=== PATIENT | male | born 1970 | race Caucasian/White ===

== ENCOUNTER 2019-12-23 20:57 | Emergency (ER) | payer OTHER, SELFPAY ==
[2019-12-23 21:06] VITALS: BP 130/91; PULSE 101; RESP 16; TEMP 36.7; O2SAT 97
[2019-12-23] MEDS: Famotidine 20 MG TAB 40 MG PO (21:22)
[2019-12-23] MEDS: predniSONE 20 MG TAB 60 MG PO (21:22)
[2019-12-23 21:50] VITALS: PULSE 89; O2SAT 99
--- NOTE | 2019-12-23 22:28 | ED.GENADUL_ITS ---
Discharge Plan Disposition Patient Disposition: HOME Condition: Stable Discharge Details Chief Complaint: Allergic Clinical Impression: Allergic reaction to bee sting Primary Care Provider: Susan,Local ED Provider: Elan Haile Home Meds and New Rx's Prescriptions: New prednisone 20 mg tablet 60 mg PO DAILY 5 Days Qty: 15 RF: 0 epinephrine [EpiPen 2-Marcio] 0.3 mg/0.3 mL auto-injector 0.3 mg IM ONCE Qty: 1 RF: 0 Discharge Instructions Instructions: Insect Bite or Sting (ED), General Allergic Reaction (ED) Additional Instructions: At this time you have responded nicely to the medications given to you in the ER and the Benadryl he took prior to arrival. Continue [id number] Benadryl and Pepcid as directed for the next 5 days. I will provide a prescription for prednisone that I want to take as directed. We discussed the use of an EpiPen in length, I will provide you a prescription for this as you to work in the [employer], often gets done, and are away from medical attention. I have placed you on the primary care list, they should be contacting you to help expedite outpatient care. Please watch for new or worsening symptoms and return to the ER for any concerns Discharge Data Discharge Date/Time-TO BE ENTERED AT DEPARTURE: 12/23/19 22:40 Medical Decision Making 49-year-old gentleman who presents with hives status post a hornet sting. Did already take Benadryl prior to arrival. No evidence of airway compromise angioedema. Patient makes it very clear that he does not want an IV. I explained to him that given the reaction typically we would give IV steroids, IV Pepcid, IV fluids and observation. He is willing to take oral fluid, take oral Pepcid and oral steroids, observed in the ER for a lengthy period of time. Patient given oral prednisone and Pepcid. Tolerated oral fluids without difficulty. Patient observed in the ER for over an hour and a half at which time he was requesting for discharge. The hives have decreased greatly decreased. I would estimate that they are approximately 80% better but not resolved completely. Patient does request a prescription for EpiPen. We had a lengthy discussion on the proper use of an EpiPen, the potential for rebound, and the importance of emergent care if he does require using his EpiPen. Patient has no additional questions or concerns and is comfortable discharge. HPI General Mode of arrival: ambulatory . Date/Time Provider Initiated Documentation: 12/23/19 21:12 . Limitations to Documentation: no limitations . Information obtained by: patient . HPI Narrative: This is a 49-year-old gentleman without significant past medical history. He reports that approximately 2 hours ago he was stung by a hornet on the left arm, approximately 45 minutes after he developed an itchy rash across his entire body sparing his head. He reports that he took 5 Benadryl and then came to the ER. He has never had a reaction like this to a sting before. He denies any pain, lightheadedness, chest pain, shortness of breath, wheezing, mouth or tongue swelling. He has no additional medical concerns at this time. He makes it very clear that he does not want to have any IV access at this time Related Data Home Medications Medication Instructions Recorded Confirmed epinephrine [EpiPen 2-Marcio] 0.3 mg IM ONCE #1 each 12/23/19 prednisone 60 mg PO DAILY 5 Days #15 tab 12/23/19 Previous Rx's Medication Instructions Recorded epinephrine [EpiPen 2-Marcio] 0.3 mg IM ONCE #1 each 12/23/19 prednisone 60 mg PO DAILY 5 Days #15 tab 12/23/19 General Stated Complaint: Allergic STACEY: 2 Review of Systems Constitutional Constitutional: Denies fever(s) and Denies weakness Eyes Eyes: Denies itchy eyes ENT Ears, Nose, Mouth, and Throat: Denies lip swelling, Denies sore throat, Denies throat swelling and Denies tongue swelling Cardiovascular Cardiovascular: Denies chest pain and Denies dyspnea Respiratory Respiratory: Denies cough, Denies dyspnea and Denies wheezing Gastrointestinal Gastrointestinal: Denies nausea Musculoskeletal Musculoskeletal: Denies numbness and Denies tingling Integumentary/Breasts Skin/Breast: Reports rash Neurologic Neurologic: Denies numbness, Denies tingling and Denies weakness Allergic/Immunologic Allergic/Immunologic: Reports urticaria, Denies itchy eyes, Denies lip swelling, Denies throat swelling, Denies tongue swelling and Denies wheezing [facility] Social History Smoking/Tobacco Use Status: Current every day Tobacco Type: e-cigarettes Drug use: Never Substance use type: does not use Do you feel safe at home: Yes Exam Const General: cooperative, healthy appearing, comfortable and no acute distress Orientation: alert, awake and oriented x3 HENMT Head: normal to inspection, normocephalic and atraumatic Face and sinus: normal facial exam Mouth: moist mucous membranes Throat: posterior oropharynx normal Eyes General: appearance normal, both eyes and all related structures Alignment and Position: alignment normal Periorbital: periorbital findings normal Eyelids: eyelids normal Conjunctivae: conjunctivae normal Sclera: sclerae normal Cornea: corneas normal Pupils: PERRL EOM: EOM intact bilaterally Direct ophthalmoscopy: normal light reflex Neck Neck: normal visual inspection, full ROM, trachea midline and supple Resp Effort & Inspection: normal respiratory effort and able to speak in complete sentences Auscultation: clear to auscultation bilaterally Cardio Rate: regular rate Rhythm: regular rhythm GI Palpation: soft and nontender Back/Spine/Pelvis Back: No back tenderness Skin Lesions: no lesions Other: Patchy, papular, erythematous, blanchable rash across the entire body, sparing the face. Highest percentage on the bilateral upper extremities, then trunk, then legs. No petechiae. Nontender. Consistent with hives Neuro General: patient alert, patient awake, patient oriented x3, moves all extremities and no focal motor deficits Speech: speech normal Gait: normal gait Motor: muscle tone normal throughout Sensory Exam: no sensory deficits noted Extrem General: normal to inspection, full ROM and capillary refill normal Psych Appearance: grossly normal Mental Status: mental status grossly normal Course Vital Signs Vital signs: Vital Signs Temperature 36.7 C 12/23/19 21:06 Pulse 101 H 12/23/19 21:06 Respiratory Rate 16 12/23/19 21:06 Blood Pressure 130/91 H 12/23/19 21:06 Pulse Oximetry 97 12/23/19 21:06 Temperature 36.7 C 12/23/19 21:06 Temperature Source Oral 12/23/19 21:06 Pulse 89 12/23/19 21:50 Respiratory Rate 16 12/23/19 21:06 Respiratory Effort 12/23/19 21:09 Respiratory Pattern Normal 12/23/19 21:09 Blood Pressure 130/91 H 12/23/19 21:06 Blood Pressure Position Sitting 12/23/19 21:06 Pulse Oximetry 99 12/23/19 21:50 Oxygen Delivery Method Room Air 12/23/19 21:06 Oxygen Flow Rate 0 12/23/19 21:06
--- NOTE | 2019-12-25 12:46 | PDOC.ERCMPRO ---
- If Service Date Differs Date of service: 12/25/19 Time of Service: 12:46 Care Management Progress Note At the request of ED provider, CM coordinates referral to Dr. Echevarria, [facility], of [facility], to assist patient in establishing care with a PCP. Vincenzo is seen in the ED on 12/23/2019 for an allergic reaction to a bee sting.
== END 2019-12-23 22:40 | disposition home or self-care (01) ==
PROVIDERS: Emergency Provider Physician Assistant
DX: T63.451A Toxic effect of venom of hornets, accidental (unintentional), initial encounter (principal); L50.0 Allergic urticaria
CPT/HCPCS: 99283; J7512

== ENCOUNTER 2020-09-05 15:15 | Outpatient (REF) | payer OTHER, SELFPAY ==
[2020-09-05 15:48] LABS: HCT 48.1 % (40.0-50.0); HGB 16.4 g/dL (13.5-17.5); MCH 29.6 pg (27.0-33.0); MCHC 34.1 % (32.0-36.0); MCV 86.8 fL (80-95); Platelet Count 409 10^3/uL (130-400); RBC 5.54 10^6/uL (4.36-5.78); RDW 12.8 % (11.8-14.1); RDW-SD 40.7 fL
[2020-09-05 16:00] LABS: ALT 33 U/L (16-63); AST 16 U/L (15-37); Alkaline Phosphatase 79 U/L (46-116); Anion Gap 11.8 mmol/L (3-11); BUN 11 mg/dL (7-18); Bilirubin, Total 0.4 mg/dL (0.2-1.0); CO2 26.2 mmol/L (21.0-32.0); CREATININE 0.8 mg/dL (0.70-1.30); Calcium 9.2 mg/dL (8.5-10.1); Calculated LDL 154 mg/dL (<100); Chloride 104 mmol/L (98-107); Cholesterol 218 mg/dL (<200); Glucose 95 mg/dL (74-106); HDL Cholesterol 48 mg/dL (40-60); Sodium 142 mmol/L (136-145); Total Protein 7.6 g/dL (6.4-8.2); Triglyceride 80 mg/dL (<150)
[2020-09-05 16:03] LABS: Hemoglobin A1C 5.6 % (<5.7)
[2020-09-05 16:25] LABS: Absolute Basophil Count 0.08 10^3/uL (0.0-0.2); Absolute Eosinophil Count 0.26 10^3/uL (0.0-0.7); Absolute Lymphocyte Count 2.93 10^3/uL (1.2-3.4); Absolute Monocyte Count 1.11 10^3/uL (0.1-0.8); Absolute Neutrophil Count 10.05 10^3/uL (1.2-6.7); Basophils % 0.6; Eosinophils % 1.8; Immature Grans % 0.7; Lymphocytes % 20.2; Monocytes % 7.6; Neutrophils % 69.1
[2020-09-05 16:32] LABS: COMMENT (LAB VIEW ONLY) 66.61 mg/dL; Microalb ug/mg Crea 11.3 ug/mg Cr
== END 2020-09-05 15:16 | disposition home or self-care (01) ==
LOC: NCHCN 15:15
PROVIDERS: Visit Provider Nurse Practitioner Family
DX: R73.9 Hyperglycemia, unspecified (principal); R10.9 Unspecified abdominal pain
CPT/HCPCS: 80053; 80061; 85027; 82043; 82570; 83036; 85007

== ENCOUNTER 2020-09-08 14:50 | Inpatient (IN) | payer OTHER, SELFPAY ==
[2020-09-08] VITALS (12 sets, daily range): BP systolic 131–148; BP diastolic 81–96; PULSE 92–125; RESP 18; TEMP 36.7–36.9; O2SAT 93–97
--- NOTE | 2020-09-08 15:15 | DI.CT_ITS ---
EXAM: CT ABDOMEN PELVIS W CLINICAL HISTORY: diffuse pain x 8 months. TECHNIQUE: Imaging Protocol: Axial computed tomography images with coronal and sagittal reformatted images were created and reviewed CONTRAST MATERIAL: Intravenous: Omnipaque 100cc Oral: None COMPARISON: No exams were available for comparison FINDINGS: VISUALIZED LUNG BASES: Mild benign-appearing subpleural increased markings in the right lung base pos terior basal segment.. There are no pleural effusions. ABDOMEN: There is no ascites. LIVER: There are no obvious focal hepatic lesions evident . GALLBLADDER/BILIARY: No obvious gallbladder pathology. CBD is not dilated. PANCREAS: No evidence of pancreatic mass nor dilatation of the pancreatic duct. SPLEEN: Spleen is not enlarged. No obvious intrasplenic lesions. Splenic and portal veins are paten t. ADRENALS: There are no significant adrenal masses. KIDNEYS:No cysts evident. No solid renal masses. No calculi nor hydronephrosis.. ABDOMINAL AORTA: Abdominal aorta is not enlarged. LYMPH NODES:There is no retroperitineal nor paraaortic adenopathy. ABDOMINAL WALL/GI: No evidence of significant anterior abdominal wall hernia. No bowel obstruction. PELVIS: GI: No evidence of appendicitis.There is significant circumferential edema of the sigmoid over a hao th of approximately 11 cm. There is surrounding soft tissue streaking and there is a area of phlegmo nous-early abscess development measuring 4.5 x 4.2 x 3.3 cm just above the affected sigmoid. There i s no abnormal air in the bladder to suggest fistulous communication. No air-gas in the portal venous system. LYMPH NODES: There is no intrapelvic nor inguinal adenopathy. REPRODUCTIVE: Prostate not enlarged. URINARY BLADDER: No calculi nor obvious masses evident OSSEOUS: No significant osseous lesions. IMPRESSION: 1. Findings are consistent with severe acute sigmoid diverticulitis. There is developing perisigmoid abscess measuring 4.5 x 4.2 x 4.3 cm. No air in the portal venous system. No abscess in the liver. There is no air within the urinary bladder to suggest fistulous communication. RADIATION DOSE DELIVERED: 1,123.45mGy.cm Total DLP DATA REPOSITORY: All CT scans at this facility are submitted to the National Radiology Data Registry (NRDR) Dose Index Registry (DIR) with the [employer] (ACR). RADIATION OPTIMIZATION: All CT scans at this facility use at least one of these dose optimization te chniques: automated exposure control; mA and/or kV adjustment per patient size (includes targeted exa ms where dose is matched to clinical indication); or iterative reconstruction.
--- NOTE | 2020-09-08 15:19 | W.ED.GENAD ---
Discharge Plan Disposition Patient Disposition: [facility] INPATIENT Condition: Stable Discharge Details Clinical Impression: Diverticulitis, Abdominal abscess Admit Date/Time: 09/08/20 16:51 Admit Provider: Louise Leon Attending Provider: Louise Leon Primary Care Provider: Susan,[facility] ED Provider: Shantal Phelps Discharge Data Discharge Date/Time-TO BE ENTERED AT DEPARTURE: 09/08/20 17:49 Medical Decision Making <AMY Nunez - Last Filed: 09/08/20 17:04> Patient is a pleasant 49-year-old male presenting today with chief complaint of diffuse abdominal pain. Reports that he is been having crampy abdominal pain for the past 6 to 8 months. He reports that when the pain comes on it typically last approximately 5 hours. No known exacerbating factors. No nothing seems to improve the discomfort. He did not find is worse with movement or eating. States over the past 2 days he has had a diminished appetite. No weight loss over the past several months. No previous abdominal surgeries. Denies any nausea or vomiting. States that he has been fairly constipated the past couple of days only has small bowel movement this morning which is atypical for him. Patient was seen by urgent care on at which time a CAT scan was ordered as an outpatient and patient has not completed this as of yet. Patient comes in today as a pain continues to worsen. On exam, patient appears anxious. He appears nontoxic. He is tachycardic with heart rate of 105. Patient is afebrile. He indicates fairly diffuse abdominal discomfort with no focal area of pain. No pain is elicited with palpation. No peritoneal findings. Lungs are clear. Normal cardiac exam. Patient denies any chest pain or shortness of breath. No alcohol. Differential the time is fairly broad. Patient does not examine like a surgical abdomen. Given the length of time, I am concerned about GERD or food driven source. Patient describes eating gluten-free when he is with his but eating canned ravioli for lunch. Unclear if this could be setting off his discomfort. Also considered cholecystitis or other gallbladder dysfunction. Diverticulitis is also on the differential. Did not have focal right lower quadrant pain patient may be suffering from an appendicitis. Plan to obtain CT that was previously ordered as well as repeat labs. Discussed this plan with the patient in agreement. Labs significant for white count of 17. This is a from 14 3 days ago. CMP without significant abnormality. At the end of my shift, care transition to Inocencia Medina NP. Patient is just coming back from CT scan. Awaiting results. <Shantal Phelps - Last Filed: 09/08/20 22:13> Care assumed from provider (AMY Nunez) Discussed patient details and case and pending workup and disposition. Patient is hemodynamically stable, alert and oriented. Please see her of original HPI and physical exam. 49-year-old male with abdominal cramping for approximately 6 to 8-month which has gradually gotten worse over the last few months, denies any nausea vomiting diarrhea. The time of signout pending CT results. He was recently seen by his PCP on September 05. CT results are as follows: FINDINGS: Lungs: subsegmental atelectasis versus scarring at the right pulmonary base. Liver: Normal. No mass. Gallbladder and bile ducts: Normal. No calcified stones. No ductal dilation. Pancreas: Normal. No ductal dilation. Spleen: Normal. No splenomegaly. Adrenal glands: Normal. No mass. Kidneys and ureters: Normal. No hydronephrosis. Stomach and bowel: Acute sigmoid diverticulitis. Adjacent abscess measures 4.2 x 3.8 cm. Appendix: No evidence of appendicitis. Intraperitoneal space: Unremarkable. No free air. No significant fluid collection. Vasculature: Atherosclerosis. Lymph nodes: Unremarkable. No enlarged lymph nodes. Urinary bladder: Unremarkable as visualized. Reproductive: Unremarkable as visualized. Bones/joints: Degenerative disc disease at L5-S1. Soft tissues: Unremarkable. IMPRESSION: Acute sigmoid diverticulitis. Adjacent abscess measures 4.2 x 3.8 cm. 1628: Surgery paged. 1631: Spoke with Dr. Leon who will personally view CT abd and call me back. Discussed CT and lab results with patient who verbalizes understanding. Lactate and CRP ordered. Patient heart rate is 112, IV lactated Ringer's is infusing without difficulty. Blood pressure is 139/82. 1640: Spoke with Dr. Leon who recommends admission at this time. Discussed plan of care with patient who verbalizes understanding and is in agreement with plan. Dr. Leon recommends Zosyn IV piggyback, blood cultures x2, orders in place. 1730: Dr. Leon here in the department for patient evaluation. Patient remained hemodynamically stable throughout stay. This text was generated using [employer] system, please disregard any oddities of phrase or misspellings. HPI <AMY Nunez - Last Filed: 09/08/20 17:04> General Mode of arrival: ambulatory. Date/Time Provider Initiated Documentation: 09/08/20 14:51. Limitations to Documentation: no limitations. Information obtained by: patient and RN notes reviewed. History of Present Illness 49 year old M presents to the emergency department with the chief complaint of diffuse abdominal pain, described as severe, with intensity rated at 8. Quality is described as other (crampy), and is localized to the abdomen. Patient reports no radiation. Patient started experiencing this month(s) (6-8) and it has been intermittent (last 5 hours a time). No relieving factors improve symptom(s), No exacerbating factors reported . Patient notes loss of appetite (last 2 days); denies chest pain, diaphoresis, fever/chills, nausea/vomiting, rash, shortness of breath and weakness. Patient did receive the following treatments prior to arrival, none Related Data Home Medications Medication Instructions Recorded Confirmed epinephrine [EpiPen 2-Marcio] 0.3 mg IM ONCE #1 each 12/23/19 09/08/20 Previous Rx's Medication Instructions Recorded epinephrine [EpiPen 2-Marcio] 0.3 mg IM ONCE #1 each 12/23/19 Allergies Allergy/AdvReac Type Severity Reaction Status Date / Time bee venom protein (honey bee) Allergy Unverified 09/08/20 15:02 General Stated Complaint: Abd Prob STACEY: 3 Review of Systems <AMY Nunez - Last Filed: 09/08/20 17:04> Constitutional Constitutional: Reports as per HPI, Denies chills, Denies fatigue, Denies fever(s) and Denies headache(s) ENT Ears, Nose, Mouth, and Throat: Denies headache(s) Cardiovascular Cardiovascular: Reports as per HPI, Denies chest pain and Denies dyspnea Respiratory Respiratory: Reports as per HPI, Denies cough and Denies dyspnea Gastrointestinal Gastrointestinal: Reports as per HPI Genitourinary Genitourinary: Denies system reviewed and no additional complaints, except as documented (patient denies any change in urinary habits) Musculoskeletal Musculoskeletal: Reports as per HPI and Denies back pain Integumentary/Breasts Skin/Breast: Reports as per HPI and Denies rash Neurologic Neurologic: Reports as per HPI and Denies headache(s) Endocrine Endocrine: Denies fatigue PFSH <AMY Nunez - Last Filed: 09/08/20 17:04> Social History Smoking/Tobacco Use Status: Current every day Tobacco Type: cigarettes Smoking risk assessment performed?: Yes Alcohol Intake: current Alcohol Intake frequency: holidays/special occasions only Drug use: Never Substance use type: does not use Do you feel safe at home: Yes Do you feel safe in your relationship?: Yes Exam <AMY Nunez Last Filed: 09/08/20 17:04> Const General: cooperative, healthy appearing, comfortable, no acute distress and well developed Nutritional Appearance: average body habitus and well nourished Orientation: alert and awake HENMT Head: normal to inspection Mouth: moist mucous membranes Resp Effort & Inspection: normal respiratory effort, able to speak in complete sentences and no respiratory distress Auscultation: clear to auscultation bilaterally, no rales, no rhonchi and no wheezes Cardio Rate: regular rate Rhythm: regular rhythm Heart Sounds: S1 normal and S2 normal GI Inspection: normal to inspection, no edema, non-distended, no visible herniation and no visible pulsation Palpation: soft, no hepatosplenomegaly, not firm, no guarding, no hernias, no pulsatile masses, not rigid and nontender (indicates entire abdomen as area of pain, none with palpation) Back/Spine/Pelvis Back: no CVA tenderness Skin General skin exam: no rashes or lesions noted Trauma: no lacerations or abrasions Neuro General: patient alert and patient awake Cognition: normal cognition Speech: speech normal Gait: normal gait Psych Appearance: grossly normal and well kempt Mental Status: mental status grossly normal Speech and Movement: speech and movement normal Course <AMY Nunez - Last Filed: 09/08/20 17:04> Vital Signs Vital signs: Vital Signs Temperature 36.7 C 09/08/20 14:55 Pulse 125 H 09/08/20 14:55 Blood Pressure 148/92 H 09/08/20 14:55 Pulse Oximetry 97 09/08/20 14:55 Temperature 36.7 C 09/08/20 14:55 Temperature Source Temporal Artery Scan 09/08/20 14:55 Pulse 125 H 09/08/20 14:55 Respiratory Effort Non-Labored 09/08/20 15:02 Blood Pressure 148/92 H 09/08/20 14:55 Blood Pressure Position Sitting 09/08/20 14:55 Pulse Oximetry 97 09/08/20 14:55 Oxygen Delivery Method Room Air 09/08/20 14:55 Oxygen Flow Rate 0 09/08/20 14:55 Pain Level 8 09/08/20 14:55 Sign Out <AMY Nunez - Last Filed: 09/08/20 17:04> Sign Out Data: Sign Out Comment: Care transition to Inocencia Medina NP with imaging pending. Patient here with 6 to 8 months of abdominal discomfort and cramping. No weight loss. Labs pertinent for white count of 17. No peritoneal findings on exam. CT scan pending. Last updated by Dionna Holt PA at 09/08/20 16:09
[2020-09-08 15:30] LABS: Abs Immature Grans 0.07 10^3/uL (0.0-0.06); Absolute Monocyte Count 1.73 10^3/uL (0.1-0.8); Absolute Neutrophil Count 12.36 10^3/uL (1.2-6.7); Basophils % 0.6; Eosinophils % 0.9; HCT 49.9 % (40.0-50.0); HGB 16.7 g/dL (13.5-17.5); Immature Grans % 0.4; Lymphocytes % 15.8; MCH 28.7 pg (27.0-33.0); MCHC 33.5 % (32.0-36.0); MCV 85.9 fL (80-95); MPV 9.9 fL (8.0-11.0); Monocytes % 10.1; Neutrophils % 72.2; Nucleated RBC 0 %; Platelet Count 440 10^3/uL (130-400); RBC 5.81 10^6/uL (4.36-5.78); RDW 12.5 % (11.8-14.1); RDW-SD 38.9 fL; WBC 17.12 10^3/uL (4.4-10.8)
[2020-09-08] MEDS: Lactated Ringers 1,000 ML 1000 ML IV (15:31)
[2020-09-08 15:32] LABS: Absolute Eosinophil Count 0.15 10^3/uL (0.0-0.7)
[2020-09-08 15:45] LABS: ALT 27 U/L (16-63); AST 12 U/L (15-37); Albumin 3.7 g/dL (3.4-5.0); Alkaline Phosphatase 78 U/L (46-116); Anion Gap 11.4 mmol/L (3-11); BUN 12 mg/dL (7-18); Bilirubin, Total 0.4 mg/dL (0.2-1.0); CO2 27.6 mmol/L (21.0-32.0); CREATININE 0.9 mg/dL (0.70-1.30); Calcium 9.2 mg/dL (8.5-10.1); Chloride 101 mmol/L (98-107); Glucose 112 mg/dL (74-106); Lipase 61 U/L (73-393); Magnesium 2.2 mg/dL (1.8-2.4); Potassium 3.7 mmol/L (3.5-5.1); Sodium 140 mmol/L (136-145); Total Protein 8.3 g/dL (6.4-8.2)
[2020-09-08] MEDS: Normal Saline - Diluent 50 ML VIAL IV (15:51)
[2020-09-08] MEDS: Omnipaque 350 MG/ML 100 ML BTL IJ (15:51)
[2020-09-08 16:15] LABS: Diff Comment Agrees w/ Instrument; RBC Morphology Normal
[2020-09-08 16:24] LABS: Bilirubin Negative (Negative); Blood Negative (Negative); Clarity Clear (Clear); Glucose Negative (Negative); Ketones Negative (Negative); Leukocyte Esterase Negative (Negative); Nitrite Negative (Negative); Specific Gravity <= 1.005 (1.005-1.025); pH 5.5 (5-8)
--- NOTE | 2020-09-08 16:25 | DI.VRAD_ITS ---
PROCEDURE INFORMATION: Exam: CT Abdomen And Pelvis With Contrast Exam date and time: 09/08/2020 3:42 PM Age: 49 years old Clinical indication: Abdominal pain; Patient HX: Diffuse pain x 8 months TECHNIQUE: Imaging protocol: Computed tomography of the abdomen and pelvis with contrast. COMPARISON: No relevant prior studies available. FINDINGS: Lungs: subsegmental atelectasis versus scarring at the right pulmonary base. Liver: Normal. No mass. Gallbladder and bile ducts: Normal. No calcified stones. No ductal dilation. Pancreas: Normal. No ductal dilation. Spleen: Normal. No splenomegaly. Adrenal glands: Normal. No mass. Kidneys and ureters: Normal. No hydronephrosis. Stomach and bowel: Acute sigmoid diverticulitis. Adjacent abscess measures 4.2 x 3.8 cm. Appendix: No evidence of appendicitis. Intraperitoneal space: Unremarkable. No free air. No significant fluid collection. Vasculature: Atherosclerosis. Lymph nodes: Unremarkable. No enlarged lymph nodes. Urinary bladder: Unremarkable as visualized. Reproductive: Unremarkable as visualized. Bones/joints: Degenerative disc disease at L5-S1. Soft tissues: Unremarkable. IMPRESSION: Acute sigmoid diverticulitis. Adjacent abscess measures 4.2 x 3.8 cm. Dictated and Authenticated by: Palak Calderon MD. Ordering:RICH Villareal MD
[2020-09-08 16:34] LABS: Bacteria Negative HPF (Negative); C & S Indicated? No; Crystals Negative HPF (Negative); Epithelial Cells Negative HPF (Negative); Mucus Negative (Negative); RBC Negative HPF (0-2); WBC Negative HPF (0-5)
[2020-09-08 16:54] LABS: Lactate 1.4 mmol/L (0.6-1.4)
[2020-09-08 17:00] LABS: C-Reactive Protein 10.73 mg/dL (0.0-0.3)
[2020-09-08] MEDS: Normal Saline 1,000 ML 1000 ML IV (17:23)
[2020-09-08] MEDS: PIPERACILLIN/TAZO 3.375 GM in Normal Saline 50 ML IVPB (17:24)
[2020-09-08 17:33] LABS: Source Nasal/Nares
--- NOTE | 2020-09-08 18:16 | HPE_ITS ---
Date of service: 09/08/20 Time of Service: 18:16 Assessment and Plan Assessment and plan (1) Colonic diverticular abscess: Status: Acute Assessment and plan: Currently the patient is nontoxic and displays no signs of symptoms. There are no indications that he needs to go to surgery for emergent exploration and we can continue with conservative medical management. He will be admitted for pain control and for antibiotics. I did reach out to Dr. Perdomo and talk to interventional radiology. He will go to for CT-guided drainage at some point on Wednesday. They will know the time better in the a.m. N.p.o. after midnight No Toradol or Lovenox at this point Zosyn for antibiotics Supportive care Drain placement tomorrow He will require colonoscopy in 4 to 6 weeks time GI and C. difficile prophylaxis and SCD for DVT prophylaxis Pulmonary toilet Nicotine patch (2) Diverticulitis: Status: Chronic History of Present Illness Consults Consult date: 09/08/20 He notes the pain does radiate into his back and into the suprapubic area. Narrative: Patient is a 50-year-old white male who presents to the ER complaining of left lower quadrant abdominal pain tonight patient says is actually has been going on the last few months. He was in urgent care a few days ago but they did nothing for me and he came to the ED he states this actually started about 6 or 8 months ago. It started after he lifted some trees and he thought he pulled something and heard something kind of waxes and wanes but never really goes away he is has become worse the last for 5 days. He has had no appetite he has had minimal bowel movements and kind of a dull achy pain. No nausea or vomiting, but just no appetite. He has had no fever or chills no cough no diarrhea or rectal bleeding. He has not really lost any weight he has never had a colonoscopy. He denies any family history of diverticular disease. He says he eats a healthy diet and denies any problems with constipation or straining to move his bowels. Currently he has minimal pain Pain in the left lower quadrant. he has no fever his vital signs are stable. he has no peritonitis and just jarad emild guarding and no real rebound. He has good bowel sounds. He denies any Covid exposure no chest pain or shortness of breath. No history of asthma, diabetes, hypertension, heart attack or stroke, epilepsy. No serious accidents within the last year. He smokes half pack a day. No medications. Denies any illnesses. His only surgery was foot surgery. He has no hardware. He had no problems with anesthesia. Review of Systems All systems reviewed & are unremarkable except as noted in HPI and below PFSH Social History Smoking/Tobacco Use Status: Current every day Tobacco Type: cigarettes Smoking risk assessment performed?: Yes Alcohol Intake: current Alcohol Intake frequency: holidays/special occasions only Drug use: Never Substance use type: does not use Do you feel safe at home: Yes Do you feel safe in your relationship?: Yes Meds Home Medications and Allergies Allergies Allergy/AdvReac Type Severity Reaction Status Date / Time bee venom protein (honey bee) Allergy Unverified 09/08/20 15:02 Home Medications Medication Instructions Recorded Confirmed Type epinephrine [EpiPen 2-Marcio] 0.3 mg IM ONCE #1 each 12/23/19 09/08/20 Rx Exam Const General: cooperative, healthy appearing, comfortable, no acute distress, well developed and well groomed Nutritional Appearance: average body habitus and well nourished Orientation: alert, awake and oriented x3 HENMT Head: normal to inspection, normocephalic and atraumatic Ears: hearing grossly normal bilaterally and external ears normal General nose exam: external nose normal Face and sinus: normal facial exam and sinuses nontender Mouth: oral mucosae normal, lip normal, tongue normal and moist mucous membranes Teeth and gingiva: dentition normal Eyes General: appearance normal, both eyes and all related structures Conjunctivae: conjunctivae normal Sclera: sclerae normal Pupils: PERRL Neck Neck: normal visual inspection and full ROM Chest Chest: normal inspection of the chest Resp Effort & Inspection: normal respiratory effort, able to speak in complete sentences, no cough, no nasal flaring, not tachypneic and no use of accessory muscles Auscultation: clear to auscultation bilaterally, no rales, no rhonchi and no wheezes Cardio Jugular venous pressure: no JVD Rate: regular rate Rhythm: regular rhythm GI Inspection: normal to inspection, no edema and non-distended Palpation: soft, no masses, tender (LLQ) and No ascites Auscultation: normal bowel sounds Skin General skin exam: no rashes or lesions noted Trauma: no lacerations or abrasions Neuro General: patient alert, patient oriented x3, oriented, gait normal, moves all extremities, no focal motor deficits and CN's II-XI intact bilaterally Cognition: normal cognition Speech: speech normal Gait: normal gait Motor: muscle tone normal throughout Extrem General: normal to inspection, full ROM and no clubbing, cyanosis or edema Psych Appearance: grossly normal and well kempt Mental Status: mental status grossly normal Speech and Movement: speech and movement normal Affect: normal affect Results Labs Result diagrams: 09/08/20 15:00 09/08/20 15:00 Labs: Laboratory Results - last 24 hr 09/08/20 09/08/20 09/08/20 15:00 15:00 16:15 WBC 17.12 H RBC 5.81 H Hgb 16.7 Hct 49.9 MCV 85.9 MCH 28.7 MCHC 33.5 RDW 12.5 Plt Count 440 H MPV 9.9 Immature Gran % 0.4 Neutrophils % 72.2 Lymphocytes % 15.8 Monocytes % 10.1 Eosinophils % 0.9 Basophils % 0.6 Nucleated RBC % 0 Absolute Neutrophils 12.36 H Absolute Lymphocytes 2.70 Absolute Monocytes 1.73 H Absolute Eosinophils 0.15 Absolute Basophils 0.10 RBC Morphology Normal VBG Lactate Sodium 140 Potassium 3.7 Chloride 101 Carbon Dioxide 27.6 Anion Gap 11.4 H BUN 12 Creatinine 0.9 Estimated GFR/1.73 m2 >= 60.00 Glucose 112 H Calcium 9.2 Magnesium 2.2 Total Bilirubin 0.4 AST 12 L ALT 27 Alkaline Phosphatase 78 C-Reactive Protein Total Protein 8.3 H Albumin 3.7 Lipase 61 Urine Color Yellow Urine Clarity Clear Urine pH 5.5 Ur Specific [place] <= 1.005 Urine Protein Trace H Urine Ketones Negative Urine Blood Negative Urine Nitrite Negative Urine Bilirubin Negative Urine Urobilinogen 4.0 H Ur Leukocyte Esterase Negative Urine RBC Negative Urine WBC Negative Ur Epithelial Cells Negative Urine Crystals Negative Urine Bacteria Negative Urine Mucus Negative Ur Culture Indicated? No Urine Glucose Negative COVID-19 Source 09/08/20 09/08/20 09/08/20 16:44 16:44 17:15 WBC RBC Hgb Hct MCV MCH MCHC RDW Plt Count MPV Immature Gran % Neutrophils % Lymphocytes % Monocytes % Eosinophils % Basophils % Nucleated RBC % Absolute Neutrophils Absolute Lymphocytes Absolute Monocytes Absolute Eosinophils Absolute Basophils RBC Morphology VBG Lactate 1.4 Sodium Potassium Chloride Carbon Dioxide Anion Gap BUN Creatinine Estimated GFR/1.73 m2 Glucose Calcium Magnesium Total Bilirubin AST ALT Alkaline Phosphatase C-Reactive Protein 10.73 H Total Protein Albumin Lipase Urine Color Urine Clarity Urine pH Ur Specific [place] Urine Protein Urine Ketones Urine Blood Urine Nitrite Urine Bilirubin Urine Urobilinogen Ur Leukocyte Esterase Urine RBC Urine WBC Ur Epithelial Cells Urine Crystals Urine Bacteria Urine Mucus Ur Culture Indicated? Urine Glucose COVID-19 Source Nasal/nares Last Vital Signs Temp 36.9 C 09/08/20 18:02 Pulse 102 H 09/08/20 18:02 Resp 18 09/08/20 18:02 BP 143/81 H 09/08/20 18:02 Pulse Ox 97 09/08/20 18:02 COVID-19 Screening Have you, or household traveled for leisure in last 14 days?: No Had IN PERSON contact w/suspected or confirmed C-19 person: No
[2020-09-08] MEDS: FAMOTIDINE 20 MG/50 ML BAG 200 MG IVPB (19:30)
[2020-09-08] MEDS: Normal Saline 1,000 ML 125 ML IV (19:31)
[2020-09-08] MEDS: Docusate Sodium 100 MG CAP PO (19:31)
[2020-09-08 21:29] LABS: COVID-19 PCR Negative (Negative)
[2020-09-09] MEDS: Normal Saline 1,000 ML 125 ML IV ×3 (00:14→23:06)
[2020-09-09] MEDS: PIPERACILLIN/TAZO 4.5 GM in Normal Saline 100 ML IVPB ×3 (02:33→17:29)
[2020-09-09 06:47] LABS: Abs Immature Grans 0.09 10^3/uL (0.0-0.06); Absolute Lymphocyte Count 1.79 10^3/uL (1.2-3.4); Absolute Monocyte Count 1.52 10^3/uL (0.1-0.8); Basophils % 0.6; Eosinophils % 0.9; HCT 40.7 % (40.0-50.0); HGB 14.1 g/dL (13.5-17.5); Immature Grans % 0.6; Lymphocytes % 11.1; MCH 29.2 pg (27.0-33.0); MCHC 34.6 % (32.0-36.0); MCV 84.3 fL (80-95); MPV 9.7 fL (8.0-11.0); Monocytes % 9.4; Neutrophils % 77.4; Nucleated RBC 0 %; RBC 4.83 10^6/uL (4.36-5.78); RDW 12.6 % (11.8-14.1); RDW-SD 38.6 fL; WBC 16.16 10^3/uL (4.4-10.8)
[2020-09-09 07:01] LABS: C-Reactive Protein 9.85 mg/dL (0.0-0.3)
[2020-09-09 07:02] LABS: Absolute Eosinophil Count 0.15 10^3/uL (0.0-0.7); Absolute Neutrophil Count 12.51 10^3/uL (1.2-6.7)
[2020-09-09 07:03] LABS: ALT 21 U/L (16-63); AST 10 U/L (15-37); Albumin 3.2 g/dL (3.4-5.0); Alkaline Phosphatase 68 U/L (46-116); BUN 9 mg/dL (7-18); Bilirubin, Total 0.8 mg/dL (0.2-1.0); CREATININE 0.8 mg/dL (0.70-1.30); Calcium 9.1 mg/dL (8.5-10.1); Chloride 104 mmol/L (98-107); Glucose 115 mg/dL (74-106); Potassium 3.7 mmol/L (3.5-5.1); Sodium 139 mmol/L (136-145); Total Protein 7.2 g/dL (6.4-8.2)
--- NOTE | 2020-09-09 07:18 | W.PM.PROGNOT ---
Date of Service Date of service: 09/09/20 Time of Service: 07:18 Assessment and Plan Assessment and plan (1) Colonic diverticular abscess: Status: Acute Assessment and plan: Going to [facility] to interventional radiology for drain placement today N.p.o. No Toradol or Lovenox at this point Zosyn for antibiotics Supportive care GI and C. difficile prophylaxis and SCD for DVT prophylaxis Encouraged continued Pulmonary toilet Nicotine patch (2) Diverticulitis: Status: Chronic Subjective Subjective Interval history since last seen: Patient reports he is feeling much better. Denies any pain at this time. He reports he is urinating without difficulty. He is passing stool and flatus also. Exam Const General: cooperative, healthy appearing and comfortable Orientation: alert and oriented x3 Resp Effort & Inspection: normal respiratory effort, no audible wheezes and no cough Objective Last Vital Signs Temp 36.9 C 09/08/20 18:02 Pulse 102 H 09/08/20 18:02 Resp 18 09/08/20 18:02 BP 143/81 H 09/08/20 18:02 Pulse Ox 97 09/08/20 18:02 Laboratory Results - last 24 hr 09/08/20 09/08/20 09/08/20 15:00 15:00 16:15 WBC 17.12 H RBC 5.81 H Hgb 16.7 Hct 49.9 MCV 85.9 MCH 28.7 MCHC 33.5 RDW 12.5 Plt Count 440 H MPV 9.9 Immature Gran % 0.4 Neutrophils % 72.2 Lymphocytes % 15.8 Monocytes % 10.1 Eosinophils % 0.9 Basophils % 0.6 Nucleated RBC % 0 Absolute Neutrophils 12.36 H Absolute Lymphocytes 2.70 Absolute Monocytes 1.73 H Absolute Eosinophils 0.15 Absolute Basophils 0.10 RBC Morphology Normal VBG Lactate Sodium 140 Potassium 3.7 Chloride 101 Carbon Dioxide 27.6 Anion Gap 11.4 H BUN 12 Creatinine 0.9 Estimated GFR/1.73 m2 >= 60.00 Glucose 112 H Calcium 9.2 Magnesium 2.2 Total Bilirubin 0.4 AST 12 L ALT 27 Alkaline Phosphatase 78 C-Reactive Protein Total Protein 8.3 H Albumin 3.7 Lipase 61 Urine Color Yellow Urine Clarity Clear Urine pH 5.5 Ur Specific [place] <= 1.005 Urine Protein Trace H Urine Ketones Negative Urine Blood Negative Urine Nitrite Negative Urine Bilirubin Negative Urine Urobilinogen 4.0 H Ur Leukocyte Esterase Negative Urine RBC Negative Urine WBC Negative Ur Epithelial Cells Negative Urine Crystals Negative Urine Bacteria Negative Urine Mucus Negative Ur Culture Indicated? No Urine Glucose Negative COVID-19 Source SARS-CoV-2 (PCR) 09/08/20 09/08/20 09/08/20 16:44 16:44 17:15 WBC RBC Hgb Hct MCV MCH MCHC RDW Plt Count MPV Immature Gran % Neutrophils % Lymphocytes % Monocytes % Eosinophils % Basophils % Nucleated RBC % Absolute Neutrophils Absolute Lymphocytes Absolute Monocytes Absolute Eosinophils Absolute Basophils RBC Morphology VBG Lactate 1.4 Sodium Potassium Chloride Carbon Dioxide Anion Gap BUN Creatinine Estimated GFR/1.73 m2 Glucose Calcium Magnesium Total Bilirubin AST ALT Alkaline Phosphatase C-Reactive Protein 10.73 H Total Protein Albumin Lipase Urine Color Urine Clarity Urine pH Ur Specific [place] Urine Protein Urine Ketones Urine Blood Urine Nitrite Urine Bilirubin Urine Urobilinogen Ur Leukocyte Esterase Urine RBC Urine WBC Ur Epithelial Cells Urine Crystals Urine Bacteria Urine Mucus Ur Culture Indicated? Urine Glucose COVID-19 Source Nasal/nares SARS-CoV-2 (PCR) Negative 09/09/20 09/09/20 06:35 06:35 WBC RBC Hgb Hct MCV MCH MCHC RDW Plt Count MPV Immature Gran % Neutrophils % Lymphocytes % Monocytes % Eosinophils % Basophils % Nucleated RBC % Absolute Neutrophils Absolute Lymphocytes Absolute Monocytes Absolute Eosinophils Absolute Basophils RBC Morphology VBG Lactate Sodium 139 Potassium 3.7 Chloride 104 Carbon Dioxide 25.0 Anion Gap 10.0 BUN 9 Creatinine 0.8 Estimated GFR/1.73 m2 >= 60.00 Glucose 115 H Calcium 9.1 Magnesium 2.0 Total Bilirubin 0.8 AST 10 L ALT 21 Alkaline Phosphatase 68 C-Reactive Protein 9.85 H Total Protein 7.2 Albumin 3.2 L Lipase Urine Color Urine Clarity Urine pH Ur Specific [place] Urine Protein Urine Ketones Urine Blood Urine Nitrite Urine Bilirubin Urine Urobilinogen Ur Leukocyte Esterase Urine RBC Urine WBC Ur Epithelial Cells Urine Crystals Urine Bacteria Urine Mucus Ur Culture Indicated? Urine Glucose COVID-19 Source SARS-CoV-2 (PCR)
[2020-09-09 07:20] LABS: Diff Comment Agrees w/ Instrument; Platelet Count 400 10^3/uL (130-400); RBC Morphology Normal
[2020-09-09 07:27] VITALS: BP 119/77; PULSE 90; RESP 20; TEMP 36.8; O2SAT 96
--- NOTE | 2020-09-09 09:56 | INITIAL_ITS ---
- If Service Date Differs Date of service: 09/09/20 Time of Service: 09:56 Care Management Initial Assess REASON FOR HOSPITALIZATION:: Colonic diverticular abscess PAST MEDICAL HISTORY/PAST SURGICAL HISTORY:: none documented PREVIOUS FUNCTIONAL STATUS/SOCIAL/FAMILY SUPPORTS:: Bassam lives in a single family home in [place], [place] with his Louise and 22 year old daughter. Bassam works for [employer] in [place], [place]. He stated that he travels [address] work but as he can be called to work in any town, he is used to travel. Bassam is independent at baseline and receives no services. Bassam stated that although he does not have a PCP he was supposed to be seen at the [facility] on Wednesday. CM will follow up. CURRENT FUNCTIONAL STATUS:: Bassam was sitting up in a chair when CM met with him. He stated that he is feeling much better. Per his H&P, Bassam has been suffering with his symptoms for several months. When CM asked what made him come to the hospital at this time, he answered my . ADVANCE DIRECTIVES:: None on file. not interested at this time Has patient been provided with info about the portal/API?: Yes Did the patient sign up for the portal?: Yes (previously) CODE STATUS:: Full Code INSURANCE COVERAGE / FINANCIAL ISSUES:: [employer] CURRENT HOME/COMMUNITY SERVICES/EQUIPMENT:: none PRIMARY CARE PHYSICIAN:: none local POTENTIAL DISCHARGE NEEDS:: follow up with PCP and discharge plan PATIENT/FAMILY EDUCATION NEEDS:: Discharge plan, limitations, follow up plan, Ask Me Three TRANSPORTATION:: via private vehicle with family PLAN:: Bassam will likely be discharged home with no new services. He will follow up with his surgeon and new PCP and transport with family. CM will continue to support patient, family and discharge planning process.
[2020-09-09 12:04] VITALS: BP 123/79; PULSE 88; RESP 18; TEMP 36.8; O2SAT 97
[2020-09-09 17:37] VITALS: BP 137/87; PULSE 88; RESP 18; TEMP 36.3; O2SAT 97
[2020-09-09] MEDS: Docusate Sodium 100 MG CAP PO (20:42)
[2020-09-09] MEDS: FAMOTIDINE 20 MG/50 ML BAG 200 MG IVPB (20:42)
[2020-09-10] MEDS: ACETAMINOPHEN 1,000 MG/100 ML BTL 400 MG IVPB ×2 (02:19→10:23)
[2020-09-10] MEDS: PIPERACILLIN/TAZO 4.5 GM in Normal Saline 100 ML IVPB ×3 (02:19→18:10)
[2020-09-10 02:30] VITALS: BP 122/78; PULSE 85; RESP 19; TEMP 36.4; O2SAT 95
[2020-09-10 07:01] LABS: Anion Gap 7.5 mmol/L (3-11); BUN 8 mg/dL (7-18); CO2 27.5 mmol/L (21.0-32.0); CREATININE 0.9 mg/dL (0.70-1.30); Calcium 9.2 mg/dL (8.5-10.1); Chloride 105 mmol/L (98-107); Glucose 100 mg/dL (74-106); Sodium 140 mmol/L (136-145)
[2020-09-10 07:06] LABS: C-Reactive Protein 10.87 mg/dL (0.0-0.3); Magnesium 2.1 mg/dL (1.8-2.4)
[2020-09-10 07:20] VITALS: BP 116/79; PULSE 76; RESP 16; TEMP 36.5; O2SAT 96
[2020-09-10] MEDS: Normal Saline 1,000 ML 125 ML IV (07:40)
--- NOTE | 2020-09-10 07:51 | W.PM.PROGNOT ---
Date of Service Date of service: 09/10/20 Time of Service: 07:51 Assessment and Plan Assessment and plan (1) Colonic diverticular abscess: Status: Acute Assessment and plan: pt is doing remarkable well. He has no pain. He is hungry and would like to advance diet. cont walking will need CE in the future (2) Diverticulitis: Status: Chronic Subjective Subjective Interval history since last seen: Pt is doing well. no headaches. No CP or SOB. no productive cough. no dysuria. no leg pain or swelling. He is having no pain. He has had mult BM- no blood. He is hungry and would like to eat more. Exam Narrative Exam Narrative: PHYSICAL EXAM GENERAL APPEARANCE: Alert, healthy appearance, oriented, in no acute distress SKIN: No rashes. No breakdown HYDRATION: Well hydrated HEAD, EYES, EARS, NECK, THROAT: Head is normocephalic, pupils equal, round, reactive to light and accommodation, ocular movement intact, sclera clear and no jaundice. Dentition intact. No sore throat. No jaw pain. No thrush NECK: Supple, Trachea midline. No JVD. LUNGS: normal respiration/nl chest excursion. Clear to auscultation B/l no R/R/W HEART: Regular rate and rhythm, EXTREMITY: No edema or cyanosis no leg pain, redness, swelling. No IV infiltration ABDOMEN: non tender to palpation, no masses or distention, no hernias. Normal bowel sounds NEURO: no focal neuro deficits. Objective Last Vital Signs Temp 36.4 C L 09/10/20 02:30 Pulse 85 09/10/20 02:30 Resp 19 09/10/20 02:30 BP 122/78 09/10/20 02:30 Pulse Ox 95 09/10/20 02:30 Laboratory Results - last 24 hr 09/10/20 09/10/20 06:35 06:35 Sodium 140 Potassium 4.0 Chloride 105 Carbon Dioxide 27.5 Anion Gap 7.5 BUN 8 Creatinine 0.9 Estimated GFR/1.73 m2 >= 60.00 Glucose 100 Calcium 9.2 Magnesium 2.1 C-Reactive Protein 10.87 H
[2020-09-10 08:09] LABS: Abs Immature Grans 0.06 10^3/uL (0.0-0.06); Absolute Lymphocyte Count 2.09 10^3/uL (1.2-3.4); Absolute Monocyte Count 1.25 10^3/uL (0.1-0.8); Absolute Neutrophil Count 9.04 10^3/uL (1.2-6.7); Basophils % 0.8; Eosinophils % 1.6; HCT 40.8 % (40.0-50.0); HGB 13.7 g/dL (13.5-17.5); Immature Grans % 0.5; Lymphocytes % 16.4; MCHC 33.6 % (32.0-36.0); MCV 86.3 fL (80-95); Monocytes % 9.8; Neutrophils % 70.9; Nucleated RBC 0 %; Platelet Count 428 10^3/uL (130-400); RBC 4.73 10^6/uL (4.36-5.78); RDW 12.6 % (11.8-14.1); RDW-SD 39.8 fL; WBC 12.75 10^3/uL (4.4-10.8)
[2020-09-10] MEDS: Normal Saline Flush 10 ML SYR IVP ×2 (08:25→22:16)
[2020-09-10] MEDS: Docusate Sodium 100 MG CAP PO ×2 (08:26→20:18)
--- NOTE | 2020-09-10 09:10 | PDOC.CMPRO ---
- If Service Date Differs Date of service: 09/10/20 Time of Service: 09:10 Care Management Progress Note S/O: Bassam was sitting up in a chair with his shoes and pants on when CM met with him. CM asked if he was going anywhere and he stated I hope so. Bassam shared that he had been walking in the halls and was feeling well. He said he tolerated a soft diet and verbalized that he hopes that he can be discharged later today. A: Bassam is a 49 year old man admitted om 09/08/20 with acute diverticulitis with abscess P: Bassam will likely be discharged home with no new services. He will follow up with his surgeon and new PCP and transport with family. CM will continue to support patient, family and discharge planning process.
--- NOTE | 2020-09-10 09:15 | W.PM.PROGNOT ---
Date of Service Date of service: 09/10/20 Time of Service: 07:00 Assessment and Plan Assessment and plan (1) Colonic diverticular abscess: Status: Acute Assessment and plan: Patient is doing very well. Tolerating Clear liquid diet progress diet as tolerated Continue antibiotics Denies having any abdominal pain Passing stool and urine without difficulty Denies any chest pain or SOB. Encouraged activity as tolerated. (2) Diverticulitis: Status: Chronic Subjective Subjective Interval history since last seen: Patient reports that he is feeling great today. He is tolerating a clear liquid diet and eager to return home. Exam Const General: cooperative, healthy appearing and comfortable Orientation: alert and oriented x3 Resp Effort & Inspection: normal respiratory effort, no audible wheezes and no cough Objective Last Vital Signs Temp 36.5 C 09/10/20 07:20 Pulse 76 09/10/20 07:20 Resp 16 09/10/20 07:20 BP 116/79 09/10/20 07:20 Pulse Ox 96 09/10/20 07:20 Laboratory Results - last 24 hr 09/10/20 09/10/20 09/10/20 06:35 06:35 06:45 WBC 12.75 H RBC 4.73 Hgb 13.7 Hct 40.8 MCV 86.3 MCH 29.0 MCHC 33.6 RDW 12.6 Plt Count 428 H MPV 10.0 Immature Gran % 0.5 Neutrophils % 70.9 Lymphocytes % 16.4 Monocytes % 9.8 Eosinophils % 1.6 Basophils % 0.8 Nucleated RBC % 0 Absolute Neutrophils 9.04 H Absolute Lymphocytes 2.09 Absolute Monocytes 1.25 H Absolute Eosinophils 0.20 Absolute Basophils 0.10 Sodium 140 Potassium 4.0 Chloride 105 Carbon Dioxide 27.5 Anion Gap 7.5 BUN 8 Creatinine 0.9 Estimated GFR/1.73 m2 >= 60.00 Glucose 100 Calcium 9.2 Magnesium 2.1 C-Reactive Protein 10.87 H
[2020-09-10 10:23] VITALS: TEMP 36.5
--- NOTE | 2020-09-10 13:55 | CHAPLAIN ---
Vincenzo was up in a chair, dressed with his jeans on and son. He said he is feeling much better and believes he may be discharged tomorrow. He's been in touch with family by phone. I'll continue to visit if he remains here.
[2020-09-10 15:36] VITALS: BP 113/73; PULSE 80; RESP 17; TEMP 36.5; O2SAT 97
[2020-09-10] MEDS: Normal Saline 500 ML 30 ML IV (18:03)
[2020-09-10] MEDS: FAMOTIDINE 20 MG/50 ML BAG 200 MG IVPB (20:17)
[2020-09-10 23:31] VITALS: BP 116/72; PULSE 79; RESP 17; TEMP 36.6; O2SAT 97
[2020-09-11] MEDS: ACETAMINOPHEN 1,000 MG/100 ML BTL 400 MG IVPB (02:04)
[2020-09-11] MEDS: PIPERACILLIN/TAZO 4.5 GM in Normal Saline 100 ML IVPB (02:04)
[2020-09-11] MEDS: Normal Saline Flush 10 ML SYR IVP ×2 (02:05→09:59)
[2020-09-11 06:39] VITALS: BP 123/79; PULSE 67; RESP 18; TEMP 36; O2SAT 97
[2020-09-11 06:54] LABS: Anion Gap 9.2 mmol/L (3-11); BUN 6 mg/dL (7-18); CO2 26.8 mmol/L (21.0-32.0); CREATININE 0.9 mg/dL (0.70-1.30); Calcium 9.4 mg/dL (8.5-10.1); Chloride 105 mmol/L (98-107); Glucose 99 mg/dL (74-106); Potassium 3.7 mmol/L (3.5-5.1); Sodium 141 mmol/L (136-145)
[2020-09-11 06:56] LABS: C-Reactive Protein 8.42 mg/dL (0.0-0.3); Magnesium 2.1 mg/dL (1.8-2.4)
--- NOTE | 2020-09-11 07:13 | W.PM.PROGNOT ---
Date of Service Date of service: 09/11/20 Time of Service: 07:00 Assessment and Plan Assessment and plan (1) Colonic diverticular abscess: Status: Acute Assessment and plan: Patient is doing very well. tolerating regular low fiber diet. Continue antibiotics, will transition to PO Augmentin for D/C Denies having any abdominal pain Passing stool and urine without difficulty Denies any chest pain or SOB. Encouraged activity as tolerated. D/C home later today. (2) Diverticulitis: Status: Chronic Subjective Subjective Interval history since last seen: Patient reports he feels excellent this morning and is eager to be d/c today. Denies having any abdominal pain. Exam Const General: cooperative, healthy appearing and comfortable Orientation: alert and oriented x3 Resp Effort & Inspection: normal respiratory effort, no audible wheezes and no cough Objective Last Vital Signs Temp 36 C L 09/11/20 06:39 Pulse 67 09/11/20 06:39 Resp 18 09/11/20 06:39 BP 123/79 09/11/20 06:39 Pulse Ox 97 09/11/20 06:39 Laboratory Results - last 24 hr 09/10/20 09/11/20 09/11/20 06:45 06:15 06:15 WBC 12.75 H RBC 4.73 Hgb 13.7 Hct 40.8 MCV 86.3 MCH 29.0 MCHC 33.6 RDW 12.6 Plt Count 428 H MPV 10.0 Immature Gran % 0.5 Neutrophils % 70.9 Lymphocytes % 16.4 Monocytes % 9.8 Eosinophils % 1.6 Basophils % 0.8 Nucleated RBC % 0 Absolute Neutrophils 9.04 H Absolute Lymphocytes 2.09 Absolute Monocytes 1.25 H Absolute Eosinophils 0.20 Absolute Basophils 0.10 Sodium 141 Potassium 3.7 Chloride 105 Carbon Dioxide 26.8 Anion Gap 9.2 BUN 6 L Creatinine 0.9 Estimated GFR/1.73 m2 >= 60.00 Glucose 99 Calcium 9.4 Magnesium 2.1 C-Reactive Protein 8.42 H
[2020-09-11 07:15] VITALS: BP 124/81; PULSE 65; RESP 16; TEMP 36.7; O2SAT 98
--- NOTE | 2020-09-11 07:24 | DSE_ITS ---
Date of service: 09/11/20 Time of Service: 07:24 DS: Diagnosis Discharge Diagnosis (1) Colonic diverticular abscess: Status: Acute (2) Diverticulitis: Status: Chronic Discharge Plan Disposition Patient Disposition: HOME Condition: Stable Discharge Details Reason For Visit: ACUTE DIVERTICULITIS W/ ABCESS Admit Date/Time: 09/08/20 16:51 Admit Provider: Louise Leon Attending Provider: Louise Leon [facility] Hospital Course: 49 y/o male admitted to the surgical service on 09/08 for colonic diverticular abscess. He was treated with IV Zosyn and went to [facility] [place]al radiology for drain placement. Upon evaluation at [facility] [place], they were unable to place a drain due to the location and signficant improvement in size of the abscess. Continued IV Zosyn, slowly progressed diet to regular, low fiber diet which the patient tolerated well. Patient has denied any complaints of abdominal pain. Urinating and having BMs without difficulty. He will need to complete a 10 day course of PO Augmentin. Will need follow up in [address] Leon in [facility]. At that time will discuss proceeding with Colonoscopy 4-6 weeks following completion of his antibiotics. Home Meds and New Rx's Prescriptions: New amoxicillin-pot clavulanate [Augmentin] 875-125 mg tablet 1 tab PO TID 10 Days Qty: 30 RF: 0 Continued epinephrine [EpiPen 2-Marcio] 0.3 mg/0.3 mL auto-injector 0.3 mg IM ONCE Qty: 1 RF: 0 Discharge Instructions Instructions: Diverticulitis (DC), Diverticulitis Diet (DC), Diverticulosis Diet (GEN) Stand Alone Forms: Nursing Discharge Form Referrals: Louise Leon, [OSTEOPATHIC DOCTOR] - (one week) Activity:: Activity as Tolerated Equipment/Supplies:: No Equipment Needed Diet:: Low fiber diet Discharge Orders Discharge Orders: Discharge Order (Routine); Ordered 09/11/20 Ordered By: Marla Arellano DS: Summary Time Spent with Patient providing and/or coordinating discharge services: Less than 30 minutes Status at Discharge Functional status at discharge: independent ambulation Overall status at discharge: patient is back to baseline Mental Status: mental status grossly normal Speech and Movement: speech and movement normal Mood: congruent mood Affect: normal affect Exam Psych Mental Status: mental status grossly normal Speech and Movement: speech and movement normal Mood: congruent mood Affect: normal affect DS: Data Vitals/I&O Vitals and I&O: Vital Signs Temperature 36.7 C 09/11/20 07:15 Temperature Source Tympanic 09/11/20 07:15 Pulse 65 09/11/20 07:15 Pulse Rhythm Regular 09/11/20 03:34 Respiratory Rate 16 09/11/20 07:15 Respiratory Effort Non-Labored 09/11/20 03:34 Respiratory Depth Normal 09/11/20 03:34 Respiratory Pattern Normal 09/11/20 03:34 Blood Pressure 124/81 09/11/20 07:15 Blood Pressure Mean 100 09/08/20 17:30 Blood Pressure Position Sitting 09/08/20 14:55 Pulse Oximetry 98 09/11/20 07:15 Oxygen Delivery Method Room Air 09/11/20 07:15 Oxygen Flow Rate 0 09/11/20 07:15 Pain Level 0 09/11/20 07:15 Intake & Output 09/10/20 09/11/20 09/11/20 18:59 06:59 18:59 Intake Total 3160 / 4080 920 / 4080 Output Total 900 / 900 Balance 2260 / 3180 920 / 3180 Weight 95.6 kg Intake: IV 2200 / 2660 460 / 2660 Oral 960 / 1420 460 / 1420 Output: Urine 900 / 900 Other: Urine Color Yellow Yellow Urine Appearance Cloudy Clear Urine Odor Normal Normal Stool Size Small Stool Characteristics Soft Liquid Voiding Methods Toilet Toilet Data Completed and Pending Labs on day of discharge: Labs from last 24 hours 09/11/20 09/11/20 09/10/20 06:15 06:15 06:45 WBC 12.75 H RBC 4.73 Hgb 13.7 Hct 40.8 MCV 86.3 MCH 29.0 MCHC 33.6 RDW 12.6 Plt Count 428 H MPV 10.0 Immature Gran % 0.5 Neutrophils % 70.9 Lymphocytes % 16.4 Monocytes % 9.8 Eosinophils % 1.6 Basophils % 0.8 Nucleated RBC % 0 Absolute Neutrophils 9.04 H Absolute Lymphocytes 2.09 Absolute Monocytes 1.25 H Absolute Eosinophils 0.20 Absolute Basophils 0.10 Sodium 141 Potassium 3.7 Chloride 105 Carbon Dioxide 26.8 Anion Gap 9.2 BUN 6 L Creatinine 0.9 Estimated GFR/1.73 m2 >= 60.00 Glucose 99 Calcium 9.4 Magnesium 2.1 C-Reactive Protein 8.42 H Preliminary micro results at discharge 09/08/20 17:18 Blood Culture - Preliminary Blood NO GROWTH 48 HOURS 09/08/20 17:08 Blood Culture - Preliminary Blood NO GROWTH 48 HOURS PFSH Social History Smoking/Tobacco Use Status: Current every day Tobacco Type: cigarettes Smoking risk assessment performed?: Yes Alcohol Intake: current Alcohol Intake frequency: holidays/special occasions only Drug use: Never Substance use type: does not use Do you feel safe at home: Yes Do you feel safe in your relationship?: Yes
[2020-09-11] MEDS: Normal Saline 500 ML 30 ML IV (10:03)
--- NOTE | 2020-09-11 13:41 | PDOC.CMDIS ---
- If Service Date Differs Date of service: 09/11/20 Time of Service: 13:41 LACE Index Scoring Tool - Questions: Length of Stay (in days): 3 Acuity (Admit via E.D.?): Yes E.D. Visits: 2 - Answers: Total Score: 8 Risk of Readmission: Low Risk Care Management Discharge Reason for Hospitalization: Colonic diverticular abscess Discharge Plan: Bassam will be discharged home with no new services. He will follow up with his surgeon and new PCP and transport with family. Patient/Family Education Needs: Discharge plan, limitations, follow up plan, Ask Me Three
== END 2020-09-11 11:16 | disposition home or self-care (01) | DRG 392 ==
LOC: ER 17:42 → MS 17:51
PROVIDERS: Physician Assistant; Admitting Provider Surgery; Emergency Provider Registered Nurse Emergency; Visit Provider Surgery
DX: K57.20 Diverticulitis of large intestine with perforation and abscess without bleeding (principal); F17.210 Nicotine dependence, cigarettes, uncomplicated
CPT/HCPCS: 36415; 80048; 80053; 83690; 87040; 87635; 96361; 96365; 99222; 99231; 99232; 99238; 99285; 74177; 81003; 81015; 83605; 83735; 85025; 86140; J0131; J2543; J3490